=== PATIENT | male | born 1960 | race Caucasian/White ===

== ENCOUNTER 2016-10-22 05:04 | Emergency (ER) | payer OTHER ==
[~2016-10-22] VITALS: Ht 170.2 cm; Wt 63.5 kg
[~2016-10-22 05:04] MED LIST: BP med; IBUPROFEN600 MG ORAL; KEFLEX500 MG ORAL; KEPPRA500 MG ORAL
[2016-10-22] MEDS ORDERED: CYCLOBENZAPRINE10 MG ORAL (06:08)
[2016-10-22] MEDS ORDERED: IBUPROFEN600 MG ORAL (06:08)
[2016-10-22 06:09] VITALS: BP 130/87
[2016-10-22 06:14] VITALS: BP 130/87
--- NOTE | 2016-10-22 11:51 | Diagnostic Imaging Report ---
Indications: PAIN Technique: Two views of the left humerus Comparison: None Findings: No acute fractures. No dislocations. Joint spaces are preserved. No radiopaque foreign body. Normal mineralization. Impression: No acute process
--- NOTE | 2016-10-22 21:45 | Emergency Room Report ---
History of Present Illness General Chief Complaint: Pain Source: Patient Present Illness HPI 56-year-old male presents to ED complaining of left arm pain x2 months. Denies injury. Believe the pain is due to the fact that he puts his arm behind his head when he sleeps. Pain is throbbing, 7-10, nonradiating. No other aggravating or relieving factors. Patient states that he went to [facility] today but left because the wait was too long. No other aggravating or relieving factors. Denies any other associated symptoms Allergies: Coded Allergies: LEVETIRACETAM (Verified Allergy, Unknown, 10/22/16) Patient History Past Medical History: HTN Past Surgical History: none Pertinent Family History: none Social History: Denies: alcohol use, drug use, smoking Immunizations: UTD Reviewed Nursing Documentation: PMH: Agreed, PSxH: Agreed Nursing Documentation-PMH Hx Cardiac Problems: No Hx Hypertension: Yes Hx Pacemaker: No Hx Asthma: No Hx COPD: No Hx Diabetes: No Hx Cancer: No Hx Gastrointestinal Problems: Yes - ulcers Hx Dialysis: No Hx Neurological Problems: No Hx Cerebrovascular Accident: No Hx Seizures: Yes - last sz within the last year Review of Systems All Other Systems: negative except mentioned in HPI Physical Exam Vital Signs Date Time Temp Pulse Resp B/P Pulse Ox O2 Delivery O2 Flow Rate FiO2 10/22/16 05:11 97.3 85 16 136/95 95 Room Air Sp02 EP Interpretation: reviewed, normal General Appearance: no apparent distress, alert, GCS 15, non-toxic Head: normocephalic Eyes: bilateral eye PERRL, bilateral eye normal inspection ENT: normal ENT inspection Neck: normal inspection Respiratory: normal inspection Cardiovascular #1: normal inspection Gastrointestinal: normal inspection Rectal: deferred Genitourinary: no CVA tenderness Musculoskeletal: back normal, gait/station normal, normal range of motion, tender Neurologic: alert, oriented x3, responsive, motor strength/tone normal, sensory intact, speech normal Psychiatric: normal inspection Skin: normal inspection Lymphatic: normal inspection Medical Decision Making Diagnostic Impression: Primary Impression: Muscle strain, upper arm Qualified Codes: S46.912A - Strain of unspecified muscle, fascia and tendon at shoulder and upper arm level, left arm, initial encounter ER Course Hospital Course 56-year-old male presents ED complaining of left arm pain x2 months Differential diagnoses include: Fracture, dislocation, sprain, contusion Clinical course Patient placed on stretcher. After initial history and physical, I ordered xrays of L arm Xrays prelim read shows no acute fracture/dislocation. On exam pain is likely muscular Diagnosis - muscle strain upper arm Stable and discharged to home with prescription for Motrin, flexeril. apply heat. weight bear as tolerated. Followup with PMD. Return to ED if symptoms recur or worsen Other X-Ray Diagnostic Results Other X-Ray Diagnostic Results : X-Ray Ordered: L humerus EP Interpretation: Yes Findings: no fractures, no dislocation, no soft tissue swelling Number of Views: 2 Last Vital Signs Date Time Temp Pulse Resp B/P Pulse Ox O2 Delivery O2 Flow Rate FiO2 10/22/16 06:14 97.3 70 18 130/87 97 Room Air Status: improved Disposition: HOME, SELF-CARE Condition: Stable Scripts Cyclobenzaprine Hcl* (FLEXERIL*) 10 Mg Tablet 10 MG ORAL TID Y for Muscle Spasm, #20 TAB Prov: LACEY YORK M.D. 10/22/16 Ibuprofen* (MOTRIN*) 600 Mg Tablet 600 MG ORAL Q8H Y for For Pain, #30 TAB 0 Refills Prov: LACEY YORK M.D. 10/22/16 Referrals: NOT CHOSEN IPA/,REFERRING Patient Instructions: Muscle Strain, [id number] LACEY YORK M.D. Oct 22, 2016 21:45
== END 2016-10-22 06:15 | disposition home or self-care (01) ==
LOC: EMR 05:32
DX: S46.912A Strain of unspecified muscle, fascia and tendon at shoulder and upper arm level, left arm, initial encounter (principal); X58.XXXA Exposure to other specified factors, initial encounter; Y92.9 Unspecified place or not applicable; I10 Essential (primary) hypertension
CPT/HCPCS: 99284

== ENCOUNTER 2017-11-12 17:53 | Emergency (ER) | payer OTHER ==
[~2017-11-12] VITALS: Ht 177.8 cm; Wt 72.6 kg
[~2017-11-12 17:53] MED LIST changes: +CYCLOBENZAPRINE10 MG ORAL
--- NOTE | 2017-11-12 18:24 | Emergency Room Report ---
History of Present Illness General Chief Complaint: General Complaint Source: Patient, Medical Record Present Illness HPI 57YOM walked in with right shoulder pain for 2 days Patient's friend states that he was carrying groceries She heard a groceries drop, and then patient was complaining of right shoulder pain Not sure if he fell or hit shoulder Denies reduced range of motion No previous shoulder dislocations or trauma Also complaining of multiple episodes of loose bowels No blood in stool, vomiting, urinary complaints, foreign travel, sick contacts Friend states he was admitted at [facility] for "mystery medical conditions" and also for abd pain. Was "supposed to have a colonoscopy" but wasnt done They are not sure why he was admitted History of seizures, not on medication Allergies: Coded Allergies: LEVETIRACETAM (Verified Allergy, Unknown, 10/22/16) Patient History Past Medical History: seizures Past Surgical History: none Pertinent Family History: none Social History: Denies: smoking, alcohol use, drug use Immunizations: UTD Reviewed Nursing Documentation: PMH: Agreed; PSxH: Agreed Nursing Documentation-PMH Past Medical History: No History, Except For Hx Cardiac Problems: No Hx Hypertension: Yes Hx Pacemaker: No Hx Asthma: No Hx COPD: No Hx Diabetes: No Hx Cancer: No Hx Gastrointestinal Problems: Yes - ulcers Hx Dialysis: No Hx Neurological Problems: No Hx Cerebrovascular Accident: No Hx Seizures: Yes - last sz within the last year Review of Systems All Other Systems: negative except mentioned in HPI Physical Exam Vital Signs Date Time Temp Pulse Resp B/P (MAP) Pulse Ox O2 Delivery O2 Flow Rate FiO2 11/12/17 18:05 98.2 85 18 154/78 100 Room Air 98.2 Sp02 EP Interpretation: reviewed, normal General Appearance: normal inspection, well appearing, no apparent distress, alert, GCS 15, non-toxic Head: normocephalic, atraumatic Eyes: bilateral eye PERRL, bilateral eye EOMI ENT: normal ENT inspection, hearing grossly normal, normal pharynx, no angioedema, normal voice, TMs + canals normal, uvula midline, moist mucus membranes Neck: normal inspection, full range of motion, supple, thyroid normal, no meningismus, no bony tend Respiratory: normal inspection, lungs clear, normal breath sounds, no rhonchi, no respiratory distress, no retraction, no accessory muscle use, no wheezing, speaking full sentences Cardiovascular #1: regular rate, rhythm, no edema, no JVD, normal capillary refill Gastrointestinal: normal inspection, normal bowel sounds, non tender, soft, no mass, no peritonitis, non-distended, no guarding, no hernia, no pulsatile mass Genitourinary: no CVA tenderness Musculoskeletal: normal inspection, back normal, normal range of motion, no calf tenderness, pelvis stable, Vikki's Sign negative, other - Right shoulder: Full ROM, mild ttp to prox humerus. No ttp to distal humerus, foream, wrist, hand. Patient put hands behind head without difficulty. Neurologic: normal inspection, alert, oriented x3, responsive, pump station operator III-XII nml as tested, motor strength/tone normal, cerebellar normal, normal gait, speech normal Psychiatric: normal inspection, judgement/insight normal, mood/affect normal, no suicidal/homicidal ideation, no delusions Skin: normal inspection, normal color, no rash Lymphatic: normal inspection, no adenopathy Medical Decision Making Diagnostic Impression: Primary Impression: Right shoulder pain Qualified Codes: M25.511 - Pain in right shoulder Additional Impression: Diarrhea Qualified Codes: R19.7 - Diarrhea, unspecified ER Course 57YOM with right shoulder pain Questionable malingering as patient c/o pain however has full ROM, putting hands behind head to rest Xray negative for trauma Patient reassured Was given loperamide for lose bowerls, but no diarrhea here Abd is serially non-focal, no nv of fever - low suspicion for acute bacterial/ surgical process here - no need to do labwork, CT at this time Will do short trial of loperamide, PMD followup DC home Last Vital Signs Date Time Temp Pulse Resp B/P (MAP) Pulse Ox O2 Delivery O2 Flow Rate FiO2 11/12/17 18:05 98.2 85 18 154/78 100 Room Air 98.2 Status: improved Disposition: HOME, SELF-CARE Scripts Loperamide Hcl (LOPERAMIDE) 2 Mg Capsule 2 MG PO DAILY for diarrhea for 3 Days, #10 CAP Prov: DEANNE QUINTANA M.D. 11/12/17 DEANNE QUINTANA M.D. Nov 12, 2017 18:24
[2017-11-12] MEDS ORDERED: UNOBMED (18:50)
[2017-11-12] MEDS ORDERED: Loperamide 2mg cap ORAL ONE (19:00)
[2017-11-12] MEDS ORDERED: LOPERAMIDE2 MG PO (19:03)
[2017-11-12 19:16] VITALS: BP 154/78
--- NOTE | 2017-11-13 08:39 | Diagnostic Imaging Report ---
Indication: Shoulder pain Technique: 3 views of the left shoulder Comparison: None Findings: No acute fractures or dislocations. Joint spaces are preserved. Impression: Negative
== END 2017-11-12 19:17 | disposition home or self-care (01) ==
LOC: EMR 18:39
DX: M25.511 Pain in right shoulder (principal); R19.7 Diarrhea, unspecified; I10 Essential (primary) hypertension; Z86.69 Personal history of other diseases of the nervous system and sense organs
CPT/HCPCS: 99283

== ENCOUNTER 2018-03-18 18:09 | Emergency (ER) | payer OTHER ==
[~2018-03-18] VITALS: Ht 170.2 cm; Wt 63.0 kg
[~2018-03-18 18:09] MED LIST changes: +LOPERAMIDE2 MG PO; +UNOBMED
--- NOTE | 2018-03-18 18:40 | Emergency Room Report ---
History of Present Illness General Chief Complaint: Abdominal Pain Source: Patient Present Illness HPI 58-year-old male presenting with left-sided rib pain for 2 days. Points to his left back/RIBS says that it hurts more when he moves or when it is touched. That he had a lot of coughing a few days ago. Denies any fever chills no anterior chest pain and no abdominal pain. Denies any dysuria, no hematuria. Had a recent endoscopy and colonoscopy yesterday that was unremarkable Allergies: Coded Allergies: LEVETIRACETAM (Verified Allergy, Unknown, 10/22/16) Patient History Past Medical History: see triage record Past Surgical History: none Pertinent Family History: none Reviewed Nursing Documentation: PMH: Agreed; PSxH: Agreed Nursing Documentation-PMH Hx Cardiac Problems: No Hx Hypertension: Yes Hx Pacemaker: No Hx Asthma: No Hx COPD: No Hx Diabetes: No Hx Cancer: No Hx Gastrointestinal Problems: Yes - ulcers Hx Dialysis: No Hx Neurological Problems: No Hx Cerebrovascular Accident: No Hx Seizures: Yes - last sz 3 years ago Review of Systems All Other Systems: negative except mentioned in HPI Physical Exam Vital Signs Date Time Temp Pulse Resp B/P (MAP) Pulse Ox O2 Delivery O2 Flow Rate FiO2 03/18/18 18:11 97.4 72 18 113/73 95 Room Air 97.3 Sp02 EP Interpretation: reviewed, normal General Appearance: alert, GCS 15, non-toxic, mild distress Head: normocephalic, atraumatic Eyes: bilateral eye normal inspection, bilateral eye PERRL, bilateral eye EOMI ENT: normal ENT inspection, normal pharynx, normal voice, moist mucus membranes Neck: normal inspection, full range of motion, supple Respiratory: normal inspection, lungs clear, normal breath sounds, no respiratory distress, no retraction, no wheezing, speaking full sentences, chest symmetrical Cardiovascular #1: normal inspection, regular rate, rhythm, no edema, normal capillary refill Cardiovascular #2: 2+ radial (R), 2+ radial (L) Gastrointestinal: normal inspection, non tender, soft, non-distended, no guarding, other - no rebound normal bS Genitourinary: no CVA tenderness Musculoskeletal: other - Left posterior ribs about ninth and 10th, intercostal muscles very tender to palpation, no CVA tenderness Neurologic: normal inspection, alert, oriented x3, responsive, motor strength/ tone normal, sensory intact, normal gait, speech normal Psychiatric: normal inspection, judgement/insight normal, memory normal Skin: normal inspection, normal color, no rash, warm/dry, well hydrated, normal turgor Medical Decision Making Diagnostic Impression: Primary Impression: Rib pain on left side Additional Impression: Hypokalemia ER Course 58-year-old male presenting with left-sided rib pain DDX: Appears to be more so musculoskeletal according to physical exam, he is not having any abdominal pain or abdominal tenderness, ACS although less likely given physical exam and history, pneumonia, pneumothorax Plan: Obtain labs, ua, ucx, CXR, EKG Pain control rib x-ray ER course: Patient has remained stable during ED stay. feels much better after meds stable on monitor hypoK likely from GI losses from recent colonoscopy supplemented Disposition: Patient is to be discharged to home. Patient is instructed to follow up with their primary care doctor within 5 days. Strict return precautions discussed with patient such as fever, chills, worsening/severe pain, chest pain, SOB, nausea, vomiting, which may indicate severe illness. Patient verbalizes understanding and agrees with plan. Please note that this Emergency Department Report was dictated using [employer]ified novell engineer technology software, occasionally this can lead to erroneous entry secondary to interpretation by the dictation equipment EKG Diagnostic Results EP Interpretation: Yes Rate: normal Rhythm: NSR ST Segments: No acute changes ASA given to patient: No Rhythm Strip EP Interpretation: Yes Rate: 70 Rhythm: NSR, no PVCs, no ectopy Chest X-ray CXR: Ordered: Yes 1 view Indication: Chest pain EP interpretation: Yes Interpretation: No consolidation, no effusion, no PTX, no acute cardiopulmonary disease Impression: No acute disease Electronically signed by Denise Tate MD Xray: Left ribs 2 view Indication: Pain EP Interpretation: Yes Interpretation: No dislocation, no soft tissue swelling, no fractures Impression: No acute disease Electronically signed by Denise Tate MD Laboratory Tests Test 03/18/18 18:37 03/18/18 18:39 Urine Color Yellow Urine Appearance Clear Urine pH 5 (4.5-8.0) Urine Specific [place] 1.015 (1.005-1.035) Urine Protein 2+ (NEGATIVE) H Urine Glucose (UA) Negative (NEGATIVE) Urine Ketones 1+ (NEGATIVE) H Urine Occult Blood Negative (NEGATIVE) Urine Nitrite Negative (NEGATIVE) Urine Bilirubin Negative (NEGATIVE) Urine Urobilinogen 1 MG/DL (0.0-1.0) H Urine Leukocyte Esterase 1+ (NEGATIVE) H Urine RBC Pending Urine WBC Pending Urine Squamous Epithelial Cells Pending Urine Bacteria Pending White Blood Count 8.5 K/UL (4.8-10.8) Red Blood Count 3.32 M/UL (4.70-6.10) L Hemoglobin 11.8 G/DL (14.2-18.0) L Hematocrit 33.8 % (42.0-52.0) L Mean Corpuscular Volume 102 FL (80-99) H Mean Corpuscular Hemoglobin 35.6 PG (27.0-31.0) H Mean Corpuscular Hemoglobin Concent 35.0 G/DL (32.0-36.0) Red Cell Distribution Width 12.2 % (11.6-14.8) Platelet Count 226 K/UL (150-450) Mean Platelet Volume 6.7 FL (6.5-10.1) Neutrophils (%) (Auto) 58.2 % (45.0-75.0) Lymphocytes (%) (Auto) 19.0 % (20.0-45.0) L Monocytes (%) (Auto) 17.3 % (1.0-10.0) H Eosinophils (%) (Auto) 2.1 % (0.0-3.0) Basophils (%) (Auto) 3.3 % (0.0-2.0) H Sodium Level 144 MMOL/L (136-145) Potassium Level 2.9 MMOL/L (3.5-5.1) L Chloride Level 104 MMOL/L (98-107) Carbon Dioxide Level 28 MMOL/L (21-32) Anion Gap 12 mmol/L (5-15) Blood Urea Nitrogen 14 mg/dL (7-18) Creatinine 1.3 MG/DL (0.55-1.30) Estimate Glomerular Filtration Rate 57.1 mL/min (>60) Glucose Level 118 MG/DL (74-106) H Calcium Level 7.1 MG/DL (8.5-10.1) L Total Bilirubin 0.6 MG/DL (0.2-1.0) Aspartate Amino Transferase (AST) 26 U/L (15-37) Alanine Aminotransferase (ALT) 19 U/L (12-78) Alkaline Phosphatase 57 U/L (46-116) Troponin I 0.000 ng/mL (0.000-0.056) Total Protein 7.5 G/DL (6.4-8.2) Albumin 3.7 G/DL (3.4-5.0) Globulin 3.8 g/dL Albumin/Globulin Ratio 1.0 (1.0-2.7) Lipase 305 U/L (73-393) Last Vital Signs Date Time Temp Pulse Resp B/P (MAP) Pulse Ox O2 Delivery O2 Flow Rate FiO2 03/18/18 18:11 97.4 72 18 113/73 95 Room Air 97.3 Disposition: HOME, SELF-CARE Condition: Improved Denise Tate M.D. Mar 18, 2018 18:40
[2018-03-18] MEDS ORDERED: Ketorolac 30mg Inj IV ONE (18:45)
[2018-03-18 18:54] VITALS: BP 113/73
[2018-03-18 19:02] LABS: BASOPHILS % (AUTO) 3.3 % (0.0-2.0); EOSINOPHILS % (AUTO) 2.1 % (0.0-3.0); HEMATOCRIT 33.8 % (42.0-52.0); HEMOGLOBIN 11.8 G/DL (14.2-18.0); MEAN CORPUSCULAR VOLUME 102 FL (80-99); MONOCYTES % (AUTO) 17.3 % (1.0-10.0); NEUTROPHILS % (AUTO) 58.2 % (45.0-75.0); PLATELET COUNT 226 K/UL (150-450); RED BLOOD COUNT 3.32 M/UL (4.70-6.10); RED CELL DISTRIBUTION WIDTH 12.2 % (11.6-14.8); WHITE BLOOD COUNT 8.5 K/UL (4.8-10.8)
[2018-03-18 19:21] LABS: ANION GAP 12 mmol/L (5-15); BLOOD UREA NITROGEN 14 mg/dL (7-18); CALCIUM 7.1 MG/DL (8.5-10.1); CARBON DIOXIDE 28 MMOL/L (21-32); CHLORIDE 104 MMOL/L (98-107); CREATININE 1.3 MG/DL (0.55-1.30); POTASSIUM 2.9 MMOL/L (3.5-5.1); SODIUM 144 MMOL/L (136-145)
[2018-03-18 19:30] LABS: ALANINE AMINOTRANSFERASE 19 U/L (12-78); ALBUMIN 3.7 G/DL (3.4-5.0); ALKALINE PHOSPHATASE 57 U/L (46-116); ASPARTATE AMINO TRANSFERASE 26 U/L (15-37); BILIRUBIN,TOTAL 0.6 MG/DL (0.2-1.0)
[2018-03-18 19:37] LABS: BILIRUBIN, URINE NEGATIVE (NEGATIVE); GLUCOSE, URINE (UA) NEGATIVE (NEGATIVE); KETONES,URINE 1+ (NEGATIVE); LEUKOCYTE ESTERASE ,URINE 1+ (NEGATIVE); NITRITE,URINE NEGATIVE (NEGATIVE); PH,URINE 5 (4.5-8.0); PROTEIN,URINE 2+ (NEGATIVE); UROBILINOGEN,URINE 1 MG/DL (0.0-1.0)
[2018-03-18 19:40] LABS: COLOR,URINE YELLOW
[2018-03-18 19:41] LABS: APPEARANCE,URINE CLEAR
[2018-03-18 20:21] VITALS: BP 113/73
--- NOTE | 2018-03-19 08:41 | Diagnostic Imaging Report ---
Indication: Chest pain Technique: One view of the chest Comparison: none Findings: There is atelectasis at the left lung base. Lungs and pleural spaces are otherwise clear. Heart size is normal. The aorta is tortuous and calcified Impression: Left basilar atelectasis. No acute process otherwise
--- NOTE | 2018-03-19 10:30 | Diagnostic Imaging Report ---
Indication: Pain, trauma Technique: 2 views of the left ribs Comparison: none Findings: There are acuity indeterminate fracture deformities of the left seventh eighth and ninth ribs, appearing healed on some images but possibly acute on others. There is some atelectasis at the left lung base. Impression: Anterolateral left seventh eighth and ninth rib fracture deformities, acuity indeterminate; suspect old but could be acute. Correlate with clinical findings. This was discussed by phone with Dr. Cheema in the emergency room at the time of interpretation
--- NOTE | 2018-03-19 17:54 | Cardiology Report ---
APPROVED REPORT EKG Measurement Heart [id number] Normal sinus rhythm Normal ECG
== END 2018-03-18 20:22 | disposition home or self-care (01) ==
LOC: EMR 18:25
DX: R07.81 Pleurodynia (principal); E87.6 Hypokalemia; I10 Essential (primary) hypertension; Z88.8 Allergy status to other drugs, medicaments and biological substances; Z87.11 Personal history of peptic ulcer disease; R07.9 Chest pain, unspecified
CPT/HCPCS: 36415; 71045; 71100; 80053; 81003; 83690; 84484; 85025; 93005; 96374; 99284; J1885; J8499

== ENCOUNTER 2018-04-08 17:00 | Emergency (ER) | payer OTHER ==
[~2018-04-08] VITALS: Ht 170.2 cm; Wt 68.0 kg
[2018-04-08 17:17] VITALS: BP 150/98
[2018-04-08] MEDS ORDERED: Norco 5mg/325mg tab ORAL ONE (17:45)
--- NOTE | 2018-04-08 18:48 | Emergency Room Report ---
History of Present Illness General Chief Complaint: Upper Extremity Injury Source: Patient (Sheba Thurman) Present Illness HPI 58-year-old male presents to the emergency department complaining of 7 out of 10 in severity right lateral hand pain acute onset after slamming his hand on a kitchen counter. Patient reports swelling, bruising and mild deformity to the hand in that area. Patient is right-hand dominant he denies previous injury to this extremity. He denies paresthesias, skin color changes or changes in temperature of the extremity. (Sheba Thurman) Allergies: Coded Allergies: LEVETIRACETAM (Verified Allergy, Unknown, 10/22/16) Patient History Past Medical History: see triage record Past Surgical History: none Pertinent Family History: none Reviewed Nursing Documentation: PMH: Agreed; PSxH: Agreed (Sheba Thurman) Nursing Documentation-PMH Past Medical History: No History, Except For Hx Cardiac Problems: No Hx Hypertension: Yes Hx Pacemaker: No Hx Asthma: No Hx COPD: No Hx Diabetes: No Hx Cancer: No Hx Gastrointestinal Problems: Yes - ulcers Hx Dialysis: No Hx Neurological Problems: No Hx Cerebrovascular Accident: No Hx Seizures: No - no sz for 3 years (Sheba Thurman) Review of Systems All Other Systems: negative except mentioned in HPI (Sheba Thurman) Physical Exam Vital Signs Date Time Temp Pulse Resp B/P (MAP) Pulse Ox O2 Delivery O2 Flow Rate FiO2 04/08/18 17:08 98.3 84 16 150/98 95 Room Air 98.2 Sp02 EP Interpretation: reviewed, normal General Appearance: alert, GCS 15, non-toxic, mild distress Head: normocephalic, atraumatic Eyes: bilateral eye normal inspection, bilateral eye PERRL ENT: hearing grossly normal, normal voice Neck: full range of motion Respiratory: lungs clear, normal breath sounds, speaking full sentences Cardiovascular #1: regular rate, rhythm, normal capillary refill Genitourinary: normal inspection Musculoskeletal: back normal, gait/station normal, normal range of motion, swelling - lateral right hand, tender - TTP to the lateral aspect of the right hand, pain with bending the right 5th digit, deformity noted, mild bruising also noted. Neurologic: alert, oriented x3, responsive, motor strength/tone normal, sensory intact, speech normal, grossly normal Psychiatric: judgement/insight normal Skin: no rash, warm/dry, well hydrated, other - bruising to the lateral aspect of the right hand (Sheba Thurman) Medical Decision Making PA Attestation Dr. Barraza is my supervising Physician whom patient management has been discussed with. (Sheba Thurman) Diagnostic Impression: Primary Impression: Metacarpal bone fracture Qualified Codes: S62.318A - Displaced fracture of base of other metacarpal bone, initial encounter for closed fracture Additional Impression: Contusion of hand, right Qualified Codes: S60.221A - Contusion of right hand, initial encounter ER Course 58-year-old male presents to the emergency department complaining of 7 out of 10 in severity right lateral hand pain acute onset after slamming his hand on a kitchen counter. Patient reports swelling, bruising and mild deformity to the hand in that area. Patient is right-hand dominant he denies previous injury to this extremity. He denies paresthesias, skin color changes or changes in temperature of the extremity. Ddx considered but are not limited to Fracture, dislocation, contusion, Sprain/ Strain/Spasm. Vital signs: are WNL, pt. is afebrile H&PE are most consistent with musculoskeletal injury will perform imaging to r/ o fractures/dislocations. ORDERS: - X-ray Right Hand - Positive for displaced 5th metacarpal fx, no obvious Dislocation, or significant soft tissue injury, per preliminary read in ED, and signed by SILVIA Thurman, my supervising physician has reviewed, and agrees with my interpretation. ED INTERVENTIONS: - Maud PO -Ulnar Gutter Splint applied by information technology program manager. Pt. remains neurovascularly intact. -Pt. given CD copy of his xrays and is given orthopedic follow up referrals. DISCHARGE: At this time pt. is stable for d/c to home. Will provide printed patient care instructions, and any necessary prescriptions. Care plan and follow up instructions have been discussed with the patient prior to discharge. (Sheba Thurman) Other X-Ray Diagnostic Results Other X-Ray Diagnostic Results : X-Ray ordered: right hand # of Views/Limited Vs Complete: 3 View Indication: Pain EP Interpretation: Yes PA Xray: Interpretation reviewed, by supervising MD, and agrees with findings. Interpretation: no dislocation, no soft tissue swelling, other - 5th metacarpal fx, displaced. Impression: Other - ABNORMAL Electronically Signed by: Sheba Thurman PA-C (Sheba Thurman) Last Vital Signs Date Time Temp Pulse Resp B/P (MAP) Pulse Ox O2 Delivery O2 Flow Rate FiO2 04/08/18 18:25 98.2 04/08/18 17:17 87 16 150/98 95 Room Air (Sheba Thurman) Disposition: HOME, SELF-CARE Condition: Stable Scripts Ibuprofen* (MOTRIN*) 600 Mg Tablet 600 MG ORAL THREE TIMES A DAY, #30 TAB 0 Refills Prov: Sheba Thurman 04/08/18 Hydrocodone Bit/Acetaminophen 5-325* (NORCO 5-325*) 1 Each Tablet 1 TAB ORAL Q6H PRN for For Pain, #15 TAB 0 Refills Prov: Sheba Thurman 04/08/18 Referrals: DEMETRIUS RENTERIA M.D. Patient Instructions: Metacarpal Fracture, [id number] Additional Instructions: Take medications as directed. Follow up with an SENIOR ACCOUNTANT in 3-5 days, and bring the CD copy of your xrays with you If symptoms persist MRI may be required at the discretion of your PCP or Ortho Specialist. --Please review list of primary care clinics, if you do not already have a primary care provider who can give you an Orthopedic Referral. Return sooner to ED if new symptoms occur, or current symptoms become worse. Do not drink alcohol, drive, or operate heavy machinery while taking Maud as this may cause drowsiness. - Please note that this Emergency Department Report was dictated using [employer] research assistant technology software, occasionally this can lead to erroneous entry secondary to interpretation by the dictation equipment. Sheba Thurman Apr 08, 2018 18:48 Angelika Barraza DO Apr 10, 2018 08:07
[2018-04-08] MEDS ORDERED: IBUPROFEN600 MG ORAL (19:03)
[2018-04-08] MEDS ORDERED: NORCO 5-325 TA1 EACH ORAL (19:03)
[2018-04-08 19:20] VITALS: BP 150/98
--- NOTE | 2018-04-09 08:30 | Diagnostic Imaging Report ---
Indication: Pain Technique: 3 views right hand Comparison: none Findings: There is an old healed fracture deformity of the distal fifth metacarpal. There is also an old healed fracture deformity of the base of the first proximal phalanx. There is apparent extension deformity of the fifth metacarpophalangeal joint. No acute fractures. No dislocations. The joint spaces are preserved. Impression: No evidence of prior trauma No acute bony trauma
== END 2018-04-08 19:21 | disposition home or self-care (01) ==
LOC: EMR 18:41
DX: S62.316A Displaced fracture of base of fifth metacarpal bone, right hand, initial encounter for closed fracture (principal); W22.03XA Walked into furniture, initial encounter; Y93.9 Activity, unspecified; Y92.010 Kitchen of single-family (private) house as the place of occurrence of the external cause; I10 Essential (primary) hypertension
CPT/HCPCS: 29125; 99283

== ENCOUNTER 2018-06-27 13:47 | Emergency (ER) | payer OTHER ==
[~2018-06-27] VITALS: Ht 170.2 cm; Wt 63.5 kg
[~2018-06-27 13:47] MED LIST changes: +NORCO 5-325 TA1 EACH ORAL
[2018-06-27] MEDS ORDERED: NKM (13:56)
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
[2018-06-27] MEDS ORDERED: ACETAMINOPHEN500 M3 ORAL (14:24)
[2018-06-27] MEDS ORDERED: Acetaminophen 500mg (ES) tab ORAL ONE (14:30)
[2018-06-27] MEDS ORDERED: Tetanus/Diptheria/Pertussis Vaccine 0.5ml Syr IM ONE (14:30)
[2018-06-27 15:05] VITALS: BP 127/80
--- NOTE | 2018-06-27 15:39 | Diagnostic Imaging Report ---
Indication: Right hand pain Technique: 3 views right hand Comparison: 04/08/2018 Findings: Again demonstrated is an old healed fracture deformity of the fifth metacarpal. Again demonstrated is an old healed fracture deformity of the base of the fifth possible phalanx. No acute fractures. No dislocations. The joint spaces are preserved. Impression: No acute bony trauma Old healed fifth metacarpal and fifth proximal phalangeal fractures.
--- NOTE | 2018-06-27 15:56 | Diagnostic Imaging Report ---
Indications:Right elbow pain, trauma Technique: Three or 4 views of the right elbow Comparison: None Findings: Considerable soft tissue swelling overlies the olecranon. No joint effusion. No acute fractures. No dislocations. Joint spaces are preserved. No radiopaque foreign body Impression: Evidence of soft tissue trauma. No acute bony trauma
== END 2018-06-27 15:05 | disposition home or self-care (01) ==
LOC: EMR 14:26
DX: S50.01XA Contusion of right elbow, initial encounter (principal); S60.511A Abrasion of right hand, initial encounter; Z91.410 Personal history of adult physical and sexual abuse; X58.XXXA Exposure to other specified factors, initial encounter; Y92.89 Other specified places as the place of occurrence of the external cause; I10 Essential (primary) hypertension; Z23 Encounter for immunization; Z88.8 Allergy status to other drugs, medicaments and biological substances
CPT/HCPCS: 90471; 90715; 99284

== ENCOUNTER 2018-11-10 00:09 | Emergency (ER) | payer OTHER ==
[~2018-11-10 00:09] MED LIST changes: +ACETAMINOPHEN500 M3 ORAL; +NKM
--- NOTE | 2018-11-10 00:15 | NUR ---
ED Nurse Note: Patient refused to be seen by a medical professional. stated that he wanted to go home and is okay.
--- NOTE | 2018-11-10 00:21 | NUR ---
Ernesto villanueva in ED - 11/10/18 at 0035 by [facility] ED Nurse Note: Patient states that he did not want to been my a medical professional, states he wanted to go home. Charge nurse, Rahul christiansen and notified
--- NOTE | 2018-11-10 00:34 | NUR ---
Ernesto villanueva in EDM - 11/10/18 at 0042 by [facility] ED Nurse Note: Patient states that he did not want to be seen my a medical professional, states he wanted to go home. Charge nurse, Rahul christiansen and notified.
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
== END 2018-11-10 00:40 | disposition left against medical advice (07) ==
LOC: EMR 00:34
DX: S99.921A Unspecified injury of right foot, initial encounter (principal); Z53.21 Procedure and treatment not carried out due to patient leaving prior to being seen by health care provider; X58.XXXA Exposure to other specified factors, initial encounter; Y92.9 Unspecified place or not applicable; I10 Essential (primary) hypertension; Z88.8 Allergy status to other drugs, medicaments and biological substances